=== PATIENT | male | born 1985 | race Caucasian/White ===

== ENCOUNTER 2018-09-11 16:14 | Emergency (ER) | payer SELFPAY ==
[2018-09-11 16:37] VITALS: BP 122/75
--- NOTE | 2018-09-11 16:47 | ED Physician Documentation ---
Sore Throat/Dental Pain - HISTORIAN Historian: patient - HPI Stated Complaint: Sore throat, neck pain/swelling Chief Complaint: Sore Throat Onset: days ago (7) Context: denies: Foreign Body, Fractured Tooth, Abscess, Dental Caries, Possible Infection, Other Associated Symptoms: fever, chills, sore throat, severe, runny nose, cough. denies: congestion, R ear pain, L ear pain Further Comments: yes (32 year old male patient presents with complaint of sore throat x 1 week.) - ROS CONST: no problems CVS/RESP: none GI/: denies: nausea, vomiting MS/SKIN/LYMPH: denies: muscle aches, rash, leg swelling, ankle swelling, other NEURO/PSYCH: none - PAST HX Past History: none Allergies/Adverse Reactions: Allergies Allergy/AdvReac Type Severity Reaction Status Date / Time No Known Allergies Allergy Verified 09/11/18 16:38 Home Medications: Ambulatory Orders Medication Instructions Recorded Amoxicillin [Trimox] 500 mg PO TID #30 capsule 09/11/18 - SOCIAL HX Smoking History: cigarettes - FAMILY HX Family History: No - VITAL SIGNS Vital Signs: Vital Signs Temp Pulse Resp BP Pulse Ox 99.0 F 84 16 122/75 99 09/11/18 16:57 09/11/18 16:57 09/11/18 16:57 09/11/18 16:57 09/11/18 16:57 - REVIEWED ASSESSMENTS Nursing Assessment Reviewed: Yes Vitals Reviewed: Yes Progress - Progress Progress: Patient requested antibiotic from [facility]. Good Rx coupon provided. ED Results Lab/Radiology - Orders Orders: ED Orders Category Date Time Status Rapid Strep [GRP A STREP SCREEN] Stat Lab 09/11/18 Ordered Sore throat Physical Exam - EXAM General Appearance: mild distress Eyes: eyes nml inspection, PERRL Mouth/Throat: widespread dental decay, pharyngeal erythema. No: tonsillar exudate Respiratory: no resp. distress, breath sounds nml CVS: reg. rate & rhythm, heart sounds nml Abdomen: soft Skin: normal color, warm/dry, NR, INT, PAL, DR Neuro/Psych: oriented x3 Discharge Clincal Impression: Strep pharyngitis Prescriptions: Amoxicillin [Trimox] 500 mg PO TID #30 capsule Referrals: Primary Doctor,No [Primary Care Provider] - 2 Days Additional Instructions: Chloraseptic spray or lozenges as needed for throat pain. Warm salt water gargles as needed pain Increase your fluid intake juices, hot tea, non-caffeinated beverages If you are congested - You may want to try Vicks rub on your chest and/or feet Use a humidifier in the room where you sleep. You can also sit in a steam filled bathroom 1-2 times a day. Tylenol or Ibuprofen as needed for fever, pain and body aches. 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 Condition: Stable Disposition: 01 HOME, SELF-CARE Decision to Admit: NO Decision Time: 16:47
== END 2018-09-11 16:57 | disposition home or self-care (01) ==
LOC: ED 16:14
DX: J02.0 Streptococcal pharyngitis (principal)
CPT/HCPCS: 87880